=== PATIENT | male | born 1995 | race African-American/Black ===

== ENCOUNTER 2016-03-10 14:26 | Emergency (ER) | payer OTHER ==
--- NOTE | 2016-03-10 15:17 | REP ---
Head CT without contrast: History: Head injury. Comparison study: No comparisons. CT findings: Bone window settings demonstrate an intact bony calvarium. There is no evidence of skull fracture or incidental bony calvarial lesion. The visualized paranasal sinuses appear clear. No intraorbital abnormality is seen. On soft tissue window setting images; the lateral, third, and fourth ventricles are normal in size and position. Booth-white differentiation pattern is normal above and below the tentorium. There are is no evidence of intracranial hemorrhage. No mass, edema, infarction, or midline shift is seen. No extra-axial fluid collection is appreciated. Impression: Negative noncontrast head CT. Signed by Yrn Skelton MD 03/10/2016 03:09 P
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
--- NOTE | 2016-03-10 17:14 | REP ---
Maxillofacial and orbits CT without contrast: History: Left orbital injury. Technique: Helical scanning is acquired. Axial 3 mm slices are reformatted. Coronal and sagittal multiplanar re-formation images are generated and reviewed. CT findings: Orbital margins appear intact. The maxillary, ethmoidal, sphenoid, and frontal sinuses are clear. Mastoid aeration is symmetric and normal. No intraorbital hematoma or mass is seen. There is a little soft tissue swelling in the inferior periorbital margin on the left. No nasal or other fracture is seen. Aerated ari bullosa are noted bilaterally. Impression: Left periorbital soft tissue swelling, mild in degree. No fracture or other traumatic abnormality noted. Signed by Yrn Skelton MD 03/10/2016 05:35 P
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
== END 2016-03-10 15:40 | disposition home or self-care (01) ==
LOC: M ED 14:26
DX: S50.12XA Contusion of left forearm, initial encounter (principal); S00.531A Contusion of lip, initial encounter; S05.12XA Contusion of eyeball and orbital tissues, left eye, initial encounter; Y00.XXXA Assault by blunt object, initial encounter; Y92.410 Unspecified street and highway as the place of occurrence of the external cause; Y93.89 Activity, other specified; Y99.8 Other external cause status